=== PATIENT | female | born 1985 | race Asian ===

== ENCOUNTER 2020-04-21 13:06 | Emergency (ER) | payer SELFPAY ==
[~2020-04-21] VITALS: Ht 167.6 cm; Wt 64.0 kg
[2020-04-21 13:21] VITALS: BP 137/76
== END 2020-04-21 13:56 | disposition left against medical advice (07) ==
LOC: ER 13:06
DX: Z53.21 Procedure and treatment not carried out due to patient leaving prior to being seen by health care provider (principal)